=== PATIENT | male | born 1945 | race Caucasian/White ===

== ENCOUNTER 2021-03-08 15:01 | Outpatient (CLI) | payer MEDICARE | END 2021-03-08 15:02 | disposition home or self-care (01) | LOC: BICULT 15:01 | PROVIDERS: ATTEND Student in an Organized Health Care Education/Training Program | DX: E04.1 Nontoxic single thyroid nodule (principal); E07.89 Other specified disorders of thyroid | CPT/HCPCS: 76536 ==

== ENCOUNTER 2021-03-20 12:18 | Day surgery (SDC) | payer MEDICARE ==
[2021-03-18 13:07] VITALS: BMI 33.6
[2021-03-20] MEDS ORDERED: Sodium Bicarbonate 2.5 MEQ/5 ML VIAL ONE (12:29)
[2021-03-20] MEDS ORDERED: Lidocaine 1% PF 5 ML VIAL ONE (12:29)
[2021-03-20 13:04] VITALS: BP 151/66; TEMP 98.3
== END 2021-03-20 14:00 | disposition home or self-care (01) ==
LOC: ULT 12:18
PROVIDERS: ATTEND Student in an Organized Health Care Education/Training Program
PROC: 0GBG3ZX Excision of Left Thyroid Gland Lobe, Percutaneous Approach, Diagnostic (ICD-10-PCS; principal; 2021-03-20)
PROC: 0GBH3ZX Excision of Right Thyroid Gland Lobe, Percutaneous Approach, Diagnostic (ICD-10-PCS; 2021-03-20)
DX: E04.1 Nontoxic single thyroid nodule (principal); J43.9 Emphysema, unspecified; I10 Essential (primary) hypertension; E78.00 Pure hypercholesterolemia, unspecified; K21.9 Gastro-esophageal reflux disease without esophagitis; Z88.2 Allergy status to sulfonamides; Z79.82 Long term (current) use of aspirin; Z79.899 Other long term (current) drug therapy; Z87.891 Personal history of nicotine dependence; Z87.442 Personal history of urinary calculi; Z86.73 Personal history of transient ischemic attack (TIA), and cerebral infarction without residual deficits
CPT/HCPCS: 60100; 76942; 88173; 88305

== ENCOUNTER 2023-01-19 10:13 | Outpatient (CLI) | payer OTHER | END 2023-01-19 10:14 | disposition home or self-care (01) | LOC: TBSIIMAG 10:13 | PROVIDERS: ATTEND Anesthesiology Pain Medicine | DX: M51.16 Intervertebral disc disorders with radiculopathy, lumbar region (principal); M47.26 Other spondylosis with radiculopathy, lumbar region | CPT/HCPCS: 72100; 72148 ==

== ENCOUNTER 2023-10-23 07:34 | Outpatient (CLI) | payer OTHER ==
[2023-10-23] MEDS ORDERED: Iopamidol 370 76% 100 ML VIAL ONE (15:02)
== END 2023-10-23 07:35 | disposition home or self-care (01) ==
LOC: CT 07:34
PROVIDERS: ATTEND Surgery
DX: M47.24 Other spondylosis with radiculopathy, thoracic region (principal); M48.02 Spinal stenosis, cervical region; R20.8 Other disturbances of skin sensation; E04.2 Nontoxic multinodular goiter; K57.30 Diverticulosis of large intestine without perforation or abscess without bleeding; N28.1 Cyst of kidney, acquired; I70.0 Atherosclerosis of aorta; M47.812 Spondylosis without myelopathy or radiculopathy, cervical region; M50.321 Other cervical disc degeneration at C4-C5 level; M50.322 Other cervical disc degeneration at C5-C6 level; M50.323 Other cervical disc degeneration at C6-C7 level; M89.38 Hypertrophy of bone, other site; M25.78 Osteophyte, vertebrae; M50.21 Other cervical disc displacement, high cervical region; Z90.49 Acquired absence of other specified parts of digestive tract; Z87.81 Personal history of (healed) traumatic fracture
CPT/HCPCS: 71260; 72141; 72146; 74177; 82565